=== PATIENT | male | born 1945 | race Caucasian/White ===

== ENCOUNTER 2017-07-24 15:04 | Observation (INO) | payer OTHER ==
[2017-07-24] MEDS ORDERED: fentaNYL 100 MCG/2 ML INJ IVP ONE (15:20)
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
[2017-07-24] MEDS ORDERED: HYDROmorphONE/DILAUDID 1 MG/ML INJ ONE (16:10)
[2017-07-24] MEDS: HYDROmorphONE/DILAUDID 1 MG/ML INJ IVP ONE ×4 (16:15→17:21)
[2017-07-24] MEDS ORDERED: IOPAMIDOL (ISOVUE-300) 100 ML BTL ONE ×2 (16:15→17:32)
[2017-07-24] MEDS ORDERED: HYDROmorphONE/DILAUDID 2 MG/ML INJ IVP ONE (17:10)
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
[2017-07-24] MEDS: NS 1,000 ML IV ONE ×2 (17:53→17:59)
[2017-07-24] MEDS ORDERED: NS 1,000 ML IV ONE (17:54)
[2017-07-24] MEDS ORDERED: HYDROmorphONE/DILAUDID 1 MG/ML INJ IVP ONE (18:34)
[2017-07-24] MEDS ORDERED: ONDANSETRON 4 MG/2 ML VIAL IVP PRN (19:07)
[2017-07-24] MEDS ORDERED: ONDANSETRON DISINTEGRATING 4 MG TAB PO PRN (19:07)
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
[2017-07-24] MEDS: DIAZEPAM 5 MG TAB PO PRN (20:25)
[2017-07-24] MEDS: HYDROCODONE/APAP 5/325 TAB PO PRN (20:27)
[2017-07-24] MEDS: IBUPROFEN 600 MG TAB PO SCH (20:28)
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
[2017-07-25] MEDS: DIAZEPAM 5 MG TAB PO PRN (02:47)
[2017-07-25] MEDS: HYDROCODONE/APAP 5/325 TAB PO PRN (02:48)
[2017-07-25] MEDS: IBUPROFEN 600 MG TAB PO SCH ×2 (05:29→12:29)
[2017-07-25 08:03] VITALS: BP 151/86
[2017-07-25] MEDS ORDERED: ENOXAPARIN 40 MG/0.4 ML SYR SC SCH (09:00)
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
== END 2017-07-25 12:55 | disposition home or self-care (01) ==
LOC: F3N 20:06
PROVIDERS: ADMIT Surgery; ATTEND Surgery
DX: S42.151A Displaced fracture of neck of scapula, right shoulder, initial encounter for closed fracture (principal); M16.11 Unilateral primary osteoarthritis, right hip; I10 Essential (primary) hypertension; Z98.1 Arthrodesis status; Z85.46 Personal history of malignant neoplasm of prostate; V47.6XXA Car passenger injured in collision with fixed or stationary object in traffic accident, initial encounter
CPT/HCPCS: 70450; 71260; 72125; 72170; 73030; 74177; 92523; 97116; 97161; 97165; 97535; G0378; G8978; G8979; G8980; G8987; G8988; G8989; G9165; G9166; G9167; J1170; J1650; J3010; L0172; Q9967; 82435-PO; 82565-PO; 82947-PO; 84132-PO; 84295-PO; 84520-PO; 85014-PO; 96374; G0390